=== PATIENT | male | born 1945 | race Caucasian/White ===

== ENCOUNTER 2021-08-10 13:40 | Outpatient (CLI) | payer OTHER | END 2021-08-10 13:41 | disposition home or self-care (01) | LOC: NUCLEAR 13:40 | PROVIDERS: ATTEND General Practice | DX: M81.0 Age-related osteoporosis without current pathological fracture (principal) ==

== ENCOUNTER 2021-11-15 10:18 | Outpatient (CLI) | payer OTHER | END 2021-11-15 10:35 | disposition home or self-care (01) | LOC: TOM 10:18 | PROVIDERS: ATTEND General Practice | DX: Z12.11 Encounter for screening for malignant neoplasm of colon (principal) ==